=== PATIENT | female | born 1985 | race Caucasian/White ===

== ENCOUNTER 2017-11-08 19:36 | Inpatient (IN) | payer OTHER ==
[~2017-11-08] VITALS: Ht 152.4 cm; Wt 45.5 kg
[2017-11-08] MEDS ORDERED: AMLO5TAB2 PO (19:58)
[2017-11-08] MEDS ORDERED: SERT25TA3 PO (19:59)
[2017-11-08] MEDS ORDERED: PLEASE ENTER ALLERGIES MC SCH (20:00)
[2017-11-08] MEDS ORDERED: LORazepam 2 MG/ML, 1ML IVPush PRN (20:00)
[2017-11-08] MEDS ORDERED: ONDANSETRON 2MG/ML, 2ML IVPush ONE (20:00)
[2017-11-08] MEDS ORDERED: SODIUM CHLORIDE FLUSH 10ML SYR IVF ONE (20:00)
[2017-11-08] MEDS ORDERED: SODIUM CHLORIDE 0.9% 1,000ML IVBOLUS ONE (20:00)
[2017-11-08] MEDS ORDERED: PLEASE ENTER HEIGHT AND WEIGHT MC SCH (20:00)
[2017-11-08] MEDS ORDERED: THIAMINE 100 MG in SODIUM CHLORIDE 0.9% 50 ML IVPB ONE (20:00)
[2017-11-08 20:02] LABS: BASOPHILS # (AUTO) 0.02 x10^3/uL (0-0.1); BASOPHILS % (AUTO) 0 % (0-1); EOSINOPHILS % (AUTO) 0 % (1-7); LYMPHOCYTES # (AUTO) 0.26 x10^3/uL (1-3.4); LYMPHOCYTES % (AUTO) 3 % (22-44); MD NO; MEAN CORPUSCULAR HEMOGLOBIN 33.5 pg (27.0-34.8); MEAN CORPUSCULAR HGB CONC 34.3 g/dL (32.4-35.8); MEAN CORPUSCULAR VOLUME 97.6 fL (80-100); MEAN PLATELET VOLUME 8.3 fL (7.4-10.4); MONOCYTES # (AUTO) 0.72 x10^3/uL (0.2-0.8); MONOCYTES % (AUTO) 8 % (2-9); NEUTROPHILS # (AUTO) 7.62 x10^3/uL (1.8-6.8); NEUTROPHILS % (AUTO) 89 % (42-75); PLATELET COUNT 152 x10^3/uL (130-400); RED CELL DISTRIBUTION WIDTH 13.9 % (9.6-15.2)
[2017-11-08 20:07] LABS: ALANINE AMINOTRANSFERASE 209 U/L (12-78); ANION GAP 26 mmol/L (5-15); CALCIUM 9.7 mg/dL (8.5-10.1); CHLORIDE 95 mmol/L (98-107); CREATININE 0.99 mg/dL (0.55-1.02)
[2017-11-08 20:10] LABS: ALKALINE PHOSPHATASE 107 U/L (45-117); TOTAL PROTEIN 10.7 g/dL (6.4-8.2)
[2017-11-08 20:12] LABS: ACETONE, SERUM Large (80mg/dL) mg/dL (Negative)
[2017-11-08] MEDS ORDERED: LORazepam 2 MG/ML, 1ML ONE (20:19)
[2017-11-08] MEDS ORDERED: ONDANSETRON 2MG/ML, 2ML ONE (20:21)
[2017-11-08] MEDS ORDERED: DIAZEPAM 5 MG/ML, 2ML IV ONE (21:00)
[2017-11-08] MEDS ORDERED: ACETAMINOPHEN 325 MG TABLET PO PRN (21:00)
[2017-11-08] MEDS ORDERED: LORazepam 2 MG/ML, 1ML IV PRN ×5 (21:00)
[2017-11-08] MEDS ORDERED: PROMETHAZINE 12.5 MG SUPP PR PRN (21:00)
[2017-11-08 21:06] LABS: MICROSCOPIC AUTO
[2017-11-08 21:31] VITALS: BP 145/77
[2017-11-08] MEDS: POTASSIUM CHLORIDE 20 MEQ, MVI ADULT 10 ML, FOLIC ACID 1 MG, MAGNESIUM SULFATE 1 GM in ... IV SCH (22:14)
[2017-11-08] MEDS: HEPARIN 5,000 UNITS/ML, 1ML SQ SCH (22:15)
[2017-11-09 02:01] VITALS: BP 124/86
[2017-11-09] MEDS: POTASSIUM CHLORIDE 20 MEQ, MVI ADULT 10 ML, FOLIC ACID 1 MG, MAGNESIUM SULFATE 1 GM in ... IV SCH (03:34)
[2017-11-09] MEDS: HEPARIN 5,000 UNITS/ML, 1ML SQ SCH (05:42)
[2017-11-09 05:50] LABS: MEAN CORPUSCULAR HEMOGLOBIN 33.4 pg (27.0-34.8); MEAN CORPUSCULAR VOLUME 98.1 fL (80-100); MEAN PLATELET VOLUME 8.6 fL (7.4-10.4); PLATELET COUNT 115 x10^3/uL (130-400); RED BLOOD COUNT 4.03 x10^6/uL (3.82-5.3); RED CELL DISTRIBUTION WIDTH 13.7 % (9.6-15.2)
[2017-11-09 05:56] LABS: INTERNATIONAL NORMALIZED RATIO 1.13 (0.93-1.1); PROTHROMBIN TIME 11.7 Seconds (9.6-11.5)
[2017-11-09 05:58] LABS: ALBUMIN 3.5 g/dL (3.4-5.0); ANION GAP 8 mmol/L (5-15); CALCIUM 7.7 mg/dL (8.5-10.1); CHLORIDE 102 mmol/L (98-107)
[2017-11-09 06:01] LABS: ALANINE AMINOTRANSFERASE 137 U/L (12-78); ALKALINE PHOSPHATASE 73 U/L (45-117); BILIRUBIN,TOTAL 0.8 mg/dL (0.2-1.0); CREATININE 0.72 mg/dL (0.55-1.02); TOTAL PROTEIN 7.5 g/dL (6.4-8.2); TRIGLYCERIDES 121 mg/dL (50-200)
[2017-11-09 06:10] LABS: BASOPHILS # (AUTO) 0.02 x10^3/uL (0-0.1); BASOPHILS % (AUTO) 0 % (0-1); EOSINOPHILS # (AUTO) 0.01 x10^3/uL (0-0.4); EOSINOPHILS % (AUTO) 0 % (1-7); LYMPHOCYTES # (AUTO) 0.58 x10^3/uL (1-3.4); LYMPHOCYTES % (AUTO) 7 % (22-44); MD SCAN; MONOCYTES # (AUTO) 1.72 x10^3/uL (0.2-0.8); MONOCYTES % (AUTO) 20 % (2-9); NEUTROPHILS # (AUTO) 6.35 x10^3/uL (1.8-6.8); NEUTROPHILS % (AUTO) 73 % (42-75)
[2017-11-09] MEDS ORDERED: SODIUM PHOSPHATE 30 MMOL in SODIUM CHLORIDE 0.9% 500 ML IV ONE ×2 (07:00→18:00)
[2017-11-09 07:11] VITALS: BP 148/96
[2017-11-09] MEDS: AMLODIPINE 5 MG TABLET PO SCH (08:02)
[2017-11-09] MEDS: SERTRALINE HCL 25 MG HOMEMEDPO SCH (08:03)
[2017-11-09] MEDS ORDERED: AMLODIPINE 5 MG TABLET PO SCH (09:00)
[2017-11-09 14:12] VITALS: BP 151/106
[2017-11-09 16:00] VITALS: BP 132/88
[2017-11-09 16:03] LABS: ANION GAP 9 mmol/L (5-15); CALCIUM 8.3 mg/dL (8.5-10.1); CHLORIDE 100 mmol/L (98-107); CREATININE 0.51 mg/dL (0.55-1.02)
[2017-11-09] MEDS: POTASSIUM CHLORIDE 20 MEQ TAB.ER.PRT PO SCH ×2 (17:47→20:45)
[2017-11-09 20:30] VITALS: BP 129/86
[2017-11-09] MEDS: MAGNESIUM CHLORIDE 64 MG TABLET.DR PO SCH (20:45)
[2017-11-10 01:00] VITALS: BP 117/89
[2017-11-10] MEDS: MAGNESIUM CHLORIDE 64 MG TABLET.DR PO SCH (08:15)
[2017-11-10] MEDS: AMLODIPINE 5 MG TABLET PO SCH (08:16)
[2017-11-10] MEDS: SERTRALINE HCL 25 MG HOMEMEDPO SCH (08:16)
[2017-11-10 08:18] VITALS: BP 130/93
[2017-11-10 08:18] LABS: ANION GAP 11 mmol/L (5-15); CALCIUM 9.4 mg/dL (8.5-10.1); CHLORIDE 97 mmol/L (98-107); CREATININE 0.55 mg/dL (0.55-1.02)
[2017-11-10] MEDS ORDERED: SODIUM PHOSPHATE 30 MMOL in SODIUM CHLORIDE 0.9% 500 ML IV ONE (12:00)
[2017-11-10 14:43] VITALS: BP 138/94
[2017-11-10] MEDS ORDERED: PHOS250T3 PO (16:40)
[2017-11-10] MEDS ORDERED: MAGN400T7 PO (16:40)
== END 2017-11-10 18:00 | disposition home or self-care (01) | DRG 896 ==
LOC: ED 20:12 → EDIP 20:17 → SUATTDRO 20:44 → ED 20:58 → 4EST 21:25
PROVIDERS: ADMIT Hospitalist; ATTEND Hospitalist
DX: F10.239 Alcohol dependence with withdrawal, unspecified (principal); K85.20 Alcohol induced acute pancreatitis without necrosis or infection; D69.6 Thrombocytopenia, unspecified; E87.2 Acidosis; E83.39 Other disorders of phosphorus metabolism; F32.9 Major depressive disorder, single episode, unspecified; I10 Essential (primary) hypertension; K70.10 Alcoholic hepatitis without ascites
CPT/HCPCS: 36415; 80048; 80053; 80307; 81001; 82010; 83605; 83690; 83735; 84100; 84478; 84703; 85025; 85610; 85730; 96374; 96375; J1644; J2405; J3411; J3475; J3480; J7042; J2060; J7030; J7040

== ENCOUNTER 2018-01-11 20:04 | Emergency (ER) | payer OTHER ==
[~2018-01-11] VITALS: Ht 152.4 cm; Wt 41.0 kg
[~2018-01-11 20:04] MED LIST: AMLO5TAB2 PO; MAGN400T7 PO; PHOS250T3 PO; SERT25TA3 PO
[2018-01-11 21:00] LABS: MEAN CORPUSCULAR HEMOGLOBIN 33.3 pg (27.0-34.8); MEAN CORPUSCULAR VOLUME 97.7 fL (80-100); RED BLOOD COUNT 4.73 x10^6/uL (3.82-5.3)
[2018-01-11] MEDS ORDERED: SODIUM CHLORIDE 0.9% 1,000ML IVBOLUS ONE (21:00)
[2018-01-11] MEDS ORDERED: SODIUM CHLORIDE FLUSH 10ML SYR IVF ONE (21:00)
[2018-01-11] MEDS ORDERED: ONDANSETRON ODT 4 MG PO ONE (21:00)
[2018-01-11 21:01] LABS: CULTURE INDICATED? YES; MICROSCOPIC INDICATED
[2018-01-11 21:08] LABS: ALANINE AMINOTRANSFERASE 118 U/L (12-78); ALBUMIN 4.1 g/dL (3.4-5.0); ANION GAP 12 mmol/L (5-15); CALCIUM 8.5 mg/dL (8.5-10.1); CHLORIDE 97 mmol/L (98-107)
[2018-01-11 21:14] LABS: ALKALINE PHOSPHATASE 98 U/L (45-117); CREATININE 0.81 mg/dL (0.55-1.02); TOTAL PROTEIN 8.9 g/dL (6.4-8.2)
[2018-01-11] MEDS ORDERED: ONDANSETRON ODT 4 MG ONE (21:15)
[2018-01-11] MEDS ORDERED: CEFTRIAXONE PMX 1GM/50ML 50 ML ONE (21:19)
[2018-01-11 21:26] LABS: MD SCAN; MEAN PLATELET VOLUME 8.7 fL (7.4-10.4); PLATELET COUNT 55 x10^3/uL (130-400)
[2018-01-11 21:29] LABS: BASOPHILS # (AUTO) 0.02 x10^3/uL (0-0.1); BASOPHILS % (AUTO) 0 % (0-1); EOSINOPHILS # (AUTO) 0.07 x10^3/uL (0-0.4); EOSINOPHILS % (AUTO) 1 % (1-7); LYMPHOCYTES # (AUTO) 1.41 x10^3/uL (1-3.4); LYMPHOCYTES % (AUTO) 11 % (22-44); MONOCYTES # (AUTO) 1.03 x10^3/uL (0.2-0.8); MONOCYTES % (AUTO) 8 % (2-9); NEUTROPHILS % (AUTO) 80 % (42-75)
[2018-01-11] MEDS ORDERED: CEFTRIAXONE PMX 1GM/50ML 50 ML IV ONE (21:30)
[2018-01-11 22:45] VITALS: BP 132/86
== END 2018-01-11 22:48 | disposition home or self-care (01) ==
LOC: ED 21:22
DX: N30.91 Cystitis, unspecified with hematuria (principal); F10.20 Alcohol dependence, uncomplicated; G40.909 Epilepsy, unspecified, not intractable, without status epilepticus
CPT/HCPCS: 36415; 80053; 80307; 81001; 83690; 84703; 85025; 87077; 87086; 87186; 93005; 96374; 99285; J0696; J7030; Q0162

== ENCOUNTER 2018-09-30 21:30 | Inpatient (IN) | payer OTHER ==
[~2018-09-30] VITALS: Ht 152.4 cm; Wt 54.1 kg
[~2018-09-30 21:30] MED LIST changes: +AMLO-150 PO; -AMLO5TAB2 PO
[2018-09-30] MEDS ORDERED: DIAZEPAM 5 MG TABLET ONE (21:53)
[2018-09-30] MEDS ORDERED: ONDANSETRON 2MG/ML, 2ML ONE (21:53)
[2018-09-30] MEDS ORDERED: PROMETHAZINE 25 MG/ML, 1ML ONE (21:53)
[2018-09-30] MEDS ORDERED: LORazepam 2 MG/ML, 1ML ONE ×2 (21:54→23:00)
[2018-09-30] MEDS ORDERED: THIAMINE 100MG TABLET ONE (21:54)
[2018-09-30] MEDS ORDERED: SODIUM CHLORIDE 0.9% 1,000ML IVBOLUS ONE (22:00)
[2018-09-30] MEDS ORDERED: ONDANSETRON 2MG/ML, 2ML IVPush ONE (22:00)
[2018-09-30] MEDS ORDERED: DIAZEPAM 10 MG TABLET PO ONE (22:00)
[2018-09-30] MEDS ORDERED: PROMETHAZINE 25 MG/ML, 1ML IM ONE (22:00)
[2018-09-30] MEDS ORDERED: THIAMINE 100MG TABLET PO ONE (22:00)
[2018-09-30] MEDS ORDERED: SODIUM CHLORIDE FLUSH 10ML SYR IVF ONE (22:00)
[2018-09-30] MEDS ORDERED: LORazepam 2 MG/ML, 1ML IVPush ONE (22:00)
--- NOTE | 2018-09-30 22:04 | NUR ---
PT MEDICATED PER EMAR. PT TOLERATED WELL. PT'S AOX4. RESPS EVEN AND UNLABORED.
[2018-09-30 22:14] LABS: BASOPHILS # (AUTO) 0.01 x10^3/uL (0-0.1); BASOPHILS % (AUTO) 0 % (0-1); EOSINOPHILS # (AUTO) 0.01 x10^3/uL (0-0.4); EOSINOPHILS % (AUTO) 0 % (1-7); LYMPHOCYTES # (AUTO) 0.27 x10^3/uL (1-3.4); LYMPHOCYTES % (AUTO) 4 % (22-44); MD NO; MEAN CORPUSCULAR HEMOGLOBIN 32.2 pg (27.0-34.8); MEAN CORPUSCULAR HGB CONC 33.8 g/dL (32.4-35.8); MEAN CORPUSCULAR VOLUME 95.4 fL (80-100); MEAN PLATELET VOLUME 8.7 fL (7.4-10.4); MONOCYTES # (AUTO) 0.86 x10^3/uL (0.2-0.8); MONOCYTES % (AUTO) 12 % (2-9); NEUTROPHILS # (AUTO) 6.19 x10^3/uL (1.8-6.8); NEUTROPHILS % (AUTO) 85 % (42-75); PLATELET COUNT 130 x10^3/uL (130-400); RED BLOOD COUNT 4.69 x10^6/uL (3.82-5.3); RED CELL DISTRIBUTION WIDTH 15.6 % (9.6-15.2)
[2018-09-30 22:24] LABS: ALBUMIN 3.9 g/dL (3.4-5.0); ANION GAP 12 mmol/L (5-15); CALCIUM 8.5 mg/dL (8.5-10.1); CHLORIDE 97 mmol/L (98-107); CREATININE 0.79 mg/dL (0.55-1.02)
--- NOTE | 2018-09-30 22:31 | NUR ---
NAUSEA GONE AT THIS TIME. PT RESTING IN [facility]. PT'S AOX4. RESPS EVEN AND UNLABORED. ALL MONITORS IN PLACE. CALL LIGHT WITHIN REACH.
[2018-09-30] MEDS ORDERED: LORazepam 2 MG/ML, 1ML IVPush PRN (23:00)
[2018-09-30] MEDS ORDERED: POTASSIUM CHLORIDE 20 MEQ TAB.ER.PRT PO ONE (23:00)
[2018-09-30] MEDS ORDERED: POTASSIUM CHLORIDE 20 MEQ TAB.ER.PRT ONE (23:05)
--- NOTE | 2018-09-30 23:07 | NUR ---
PT MEDICATED PER EMAR. PT TOLERATED WELL. PT'S AOX4. RESPS EVEN AND UNLABORED.
--- NOTE | 2018-09-30 23:21 | NUR ---
patient hallucinating, talking to a person not even there. MD aware. patient re-medicated. for admit.
--- NOTE | 2018-09-30 23:54 | NUR ---
student MD at bedside for patient's evaluation.
[2018-10-01] MEDS ORDERED: MAGNESIUM SULFATE 1 GM, FOLIC ACID 1 MG, MVI ADULT 10 ML in SODIUM CHLORIDE 0.9% 1,000 ML IV ONE
--- NOTE | 2018-10-01 00:09 | NUR ---
report given to jose calvert. all questions answered.
[2018-10-01 00:19] VITALS: BP 138/97
[2018-10-01 00:30] VITALS: BP 138/97
[2018-10-01] MEDS ORDERED: morphine SULFATE 10 MG/ML, 1ML IVPush PRN (00:30)
[2018-10-01] MEDS ORDERED: LORazepam 0.5MG TABLET PO PRN (00:30)
[2018-10-01] MEDS ORDERED: ENOXAPARIN 40 MG/0.4 ML SQ SCH (00:30)
[2018-10-01] MEDS ORDERED: LORazepam 1MG TABLET PO PRN ×4 (00:30)
[2018-10-01] MEDS ORDERED: DIPHENHYDRAMINE 50 MG/ML, 1ML IV PRN (00:30)
[2018-10-01] MEDS ORDERED: LORazepam 2 MG/ML, 1ML IV PRN ×5 (00:30)
[2018-10-01] MEDS ORDERED: ACETAMINOPHEN 325 MG TABLET PO PRN (00:30)
[2018-10-01] MEDS ORDERED: ACETAMINOPHEN 650 MG SUPP PR PRN (00:30)
[2018-10-01] MEDS ORDERED: ONDANSETRON 2MG/ML, 2ML IV PRN (00:30)
[2018-10-01] MEDS ORDERED: THIAMINE 100MG TABLET PO ONE (00:30)
[2018-10-01] MEDS: POTASSIUM CHLORIDE 40 MEQ, MVI ADULT 10 ML, FOLIC ACID 1 MG, MAGNESIUM SULFATE 2 GM in ... IV SCH ×2 (01:27→06:25)
[2018-10-01 06:17] LABS: MEAN CORPUSCULAR HEMOGLOBIN 32.1 pg (27.0-34.8); MEAN CORPUSCULAR HGB CONC 33.6 g/dL (32.4-35.8); MEAN CORPUSCULAR VOLUME 95.5 fL (80-100); MEAN PLATELET VOLUME 8.3 fL (7.4-10.4); PLATELET COUNT 115 x10^3/uL (130-400); RED BLOOD COUNT 4.18 x10^6/uL (3.82-5.3); RED CELL DISTRIBUTION WIDTH 15.6 % (9.6-15.2)
[2018-10-01 06:28] LABS: ALANINE AMINOTRANSFERASE 46 U/L (12-78); ANION GAP 7 mmol/L (5-15); CALCIUM 7.8 mg/dL (8.5-10.1); CHLORIDE 106 mmol/L (98-107); CREATININE 0.64 mg/dL (0.55-1.02)
[2018-10-01 06:30] LABS: ALKALINE PHOSPHATASE 77 U/L (45-117); BILIRUBIN,TOTAL 0.7 mg/dL (0.2-1.0); TOTAL PROTEIN 6.8 g/dL (6.4-8.2)
[2018-10-01 06:35] LABS: BASOPHILS # (AUTO) 0.01 x10^3/uL (0-0.1); BASOPHILS % (AUTO) 0 % (0-1); EOSINOPHILS # (AUTO) 0.02 x10^3/uL (0-0.4); EOSINOPHILS % (AUTO) 0 % (1-7); LYMPHOCYTES # (AUTO) 0.79 x10^3/uL (1-3.4); LYMPHOCYTES % (AUTO) 10 % (22-44); MD SCAN; MONOCYTES # (AUTO) 1.54 x10^3/uL (0.2-0.8); MONOCYTES % (AUTO) 19 % (2-9); NEUTROPHILS # (AUTO) 5.73 x10^3/uL (1.8-6.8); NEUTROPHILS % (AUTO) 71 % (42-75)
[2018-10-01 07:39] VITALS: BP 133/90
[2018-10-01] MEDS ORDERED: POTASSIUM PHOSPHATE 44 MEQ in SODIUM CHLORIDE 0.9% 500 ML IV ONE (08:00)
[2018-10-01 09:12] LABS: MICROSCOPIC AUTO
[2018-10-01 09:15] LABS: CULTURE INDICATED? YES
[2018-10-01 13:36] LABS: AMPHETAMINE SCREEN, URINE Positive (Negative); BARBITURATE SCREEN, URINE Negative (Negative); BENZODIAZEPINE SCREEN, URINE Positive (Negative); CANNABINOID SCREEN, URINE Negative (Negative); COCAINE SCREEN, URINE Negative (Negative); METHADONE SCREEN, URINE Negative (Negative); OPIATE SCREEN, URINE Positive (Negative)
== END 2018-10-01 11:00 | disposition left against medical advice (07) | DRG 100 ==
LOC: ED 22:36 → EDIP 10-01 00:05 → 4EST 10-01 00:26
PROVIDERS: ADMIT Hospitalist; ATTEND Hospitalist
DX: G40.909 Epilepsy, unspecified, not intractable, without status epilepticus (principal); G93.41 Metabolic encephalopathy; R44.3 Hallucinations, unspecified; F10.231 Alcohol dependence with withdrawal delirium; E87.1 Hypo-osmolality and hyponatremia; I10 Essential (primary) hypertension; F32.9 Major depressive disorder, single episode, unspecified; E87.6 Hypokalemia; E86.0 Dehydration; F17.200 Nicotine dependence, unspecified, uncomplicated; Z53.21 Procedure and treatment not carried out due to patient leaving prior to being seen by health care provider
CPT/HCPCS: 36415; 99291; J7042; 80048; 80053; 80307; 81001; 82040; 83735; 84100; 84703; 85025; 87086; 87147; 93005; 96372; 96374; 96375; G0378; J1650; J2405; J2550; J3475; J3480; J2060; J7030; J7040